=== PATIENT | female | born 1975 | race Caucasian/White ===

== ENCOUNTER 2022-09-10 11:22 | Day surgery (SDC) | payer OTHER, BC ==
[2022-09-07 16:42] VITALS: BMI 25.5
[2022-09-10] MEDS ORDERED: PROPOFOL 80 ML ONE (11:50)
[2022-09-10 14:16] VITALS: PULSE 74; RESP 18; TEMP 97.9
[2022-09-10 14:17] VITALS: BP 110/67
== END 2022-09-10 12:50 | disposition home or self-care (01) ==
LOC: FASU-ENDO 11:22
PROVIDERS: ATTEND Internal Medicine Gastroenterology
PROC: 0DB78ZX Excision of Stomach, Pylorus, Via Natural or Artificial Opening Endoscopic, Diagnostic (ICD-10-PCS; 2022-09-10)
PROC: 0DB48ZX Excision of Esophagogastric Junction, Via Natural or Artificial Opening Endoscopic, Diagnostic (ICD-10-PCS; 2022-09-10)
PROC: 0DB98ZX Excision of Duodenum, Via Natural or Artificial Opening Endoscopic, Diagnostic (ICD-10-PCS; principal; 2022-09-10 12:02)
DX: K29.70 Gastritis, unspecified, without bleeding (principal)
CPT/HCPCS: 81025; 88305-TC; 88342-TC

== ENCOUNTER 2023-01-07 10:10 | Day surgery (SDC) | payer OTHER, BC ==
[2023-01-06 15:11] VITALS: BMI 26.6
[2023-01-07 10:58] VITALS: RESP 18
[2023-01-07 12:25] VITALS: BP 126/72; TEMP 98.2
[2023-01-07 13:01] VITALS: PULSE 89
== END 2023-01-07 13:19 | disposition home or self-care (01) ==
LOC: FASU-ENDO 10:10
PROVIDERS: ATTEND Internal Medicine Gastroenterology
PROC: 0DBN8ZX Excision of Sigmoid Colon, Via Natural or Artificial Opening Endoscopic, Diagnostic (ICD-10-PCS; principal; 2023-01-07 11:49)
DX: Z12.11 Encounter for screening for malignant neoplasm of colon (principal); D12.5 Benign neoplasm of sigmoid colon; K64.1 Second degree hemorrhoids; K64.8 Other hemorrhoids
CPT/HCPCS: 81025; 88305-TC